=== PATIENT | female | born 1975 | race African-American/Black ===

== ENCOUNTER 2017-02-09 16:05 | Emergency (ER) | payer MEDICAID ==
[~2017-02-09] VITALS: Ht 162.6 cm; Wt 49.9 kg
[~2017-02-09 16:05] MED LIST: SUMA50TA2 PO
[2017-02-09 17:12] VITALS: BP 115/86
[2017-02-09] MEDS ORDERED: SUMAtriptan SUCCINATE 6 MG/0.5 ML VL SC ONE (17:15)
[2017-02-09] MEDS ORDERED: ONDANSETRON ODT 4 MG TAB PO ONE (17:15)
== END 2017-02-09 18:05 | disposition home or self-care (01) ==
LOC: ER 16:13
DX: G43.909 Migraine, unspecified, not intractable, without status migrainosus (principal); F17.210 Nicotine dependence, cigarettes, uncomplicated
CPT/HCPCS: 96372; 99283; J3030; Q0162

== ENCOUNTER 2017-06-24 08:02 | Emergency (ER) | payer MEDICAID ==
[~2017-06-24] VITALS: Ht 162.6 cm; Wt 49.9 kg
[2017-06-24 08:07] VITALS: BP 104/64
[2017-06-24] MEDS ORDERED: diphenhdrAMINE HCL 25 MG CAP PO ONE (10:30)
[2017-06-24] MEDS ORDERED: KETOROLAC TROMETH 60MG/2ML VIAL IM ONE (10:30)
[2017-06-24] MEDS ORDERED: ONDANSETRON ODT 4 MG TAB PO ONE (10:30)
== END 2017-06-24 11:54 | disposition home or self-care (01) ==
LOC: ER 08:02
DX: G43.909 Migraine, unspecified, not intractable, without status migrainosus (principal); Z87.891 Personal history of nicotine dependence
CPT/HCPCS: 96372; 99283; J1885; Q0162

== ENCOUNTER 2017-09-01 14:12 | Emergency (ER) | payer SELFPAY ==
[~2017-09-01] VITALS: Ht 160 cm; Wt 47.6 kg
[2017-09-01 14:43] VITALS: BP 122/84
[2017-09-01] MEDS ORDERED: ONDANSETRON ODT 4 MG TAB PO ONE ×2 (14:58→15:00)
[2017-09-01] MEDS ORDERED: SUMAtriptan SUCCINATE 6 MG/0.5 ML VL SC ONE (15:45)
[2017-09-01] MEDS ORDERED: PROMETHAZINE HCL 25 MG/ML 1ML IM ONE (15:45)
== END 2017-09-01 17:15 | disposition home or self-care (01) ==
LOC: ER 14:12
DX: G43.909 Migraine, unspecified, not intractable, without status migrainosus (principal); F17.210 Nicotine dependence, cigarettes, uncomplicated
CPT/HCPCS: 96372; 99284; J2550; J3030; Q0162

== ENCOUNTER 2018-06-13 09:36 | Emergency (ER) | payer MEDICAID, OTHER ==
[~2018-06-13] VITALS: Ht 162.6 cm; Wt 49.9 kg
[2018-06-13 09:48] VITALS: BP 93/68
[2018-06-13] MEDS ORDERED: ONDANSETRON ODT 4 MG TAB PO ONE (10:30)
[2018-06-13] MEDS ORDERED: SUMAtriptan SUCCINATE 6 MG/0.5 ML VL SC ONE (10:30)
== END 2018-06-13 11:16 | disposition home or self-care (01) ==
LOC: ER 09:36
DX: G43.909 Migraine, unspecified, not intractable, without status migrainosus (principal); Z79.899 Other long term (current) drug therapy
CPT/HCPCS: 96372; 99283; J3030; Q0162

== ENCOUNTER 2018-10-23 10:32 | Emergency (ER) | payer OTHER ==
[~2018-10-23] VITALS: Ht 152.4 cm; Wt 49.0 kg
[2018-10-23 10:54] VITALS: BP 138/72
[2018-10-23] MEDS ORDERED: SUMAtriptan SUCCINATE 6 MG/0.5 ML VL SC ONE (11:00)
[2018-10-23] MEDS ORDERED: ONDANSETRON ODT 4 MG TAB PO ONE (11:00)
== END 2018-10-23 11:56 | disposition home or self-care (01) ==
LOC: ER 10:32
DX: G43.909 Migraine, unspecified, not intractable, without status migrainosus (principal); F17.210 Nicotine dependence, cigarettes, uncomplicated
CPT/HCPCS: 96372; 99283; J3030; Q0162

== ENCOUNTER 2019-05-08 20:40 | Emergency (ER) | payer OTHER ==
[~2019-05-08] VITALS: Ht 160 cm; Wt 48.1 kg
[2019-05-08 22:04] VITALS: BP 101/75
[2019-05-08] MEDS ORDERED: HYDROcodone-ACET 10/325MG TAB PO ONE (22:15)
[2019-05-08] MEDS ORDERED: KETOROLAC TROMETH 60MG/2ML VIAL IM ONE (22:15)
== END 2019-05-08 22:17 | disposition home or self-care (01) ==
LOC: ER 20:44
DX: H66.93 Otitis media, unspecified, bilateral (principal); R05 Cough; R09.81 Nasal congestion
CPT/HCPCS: 96372; 99283; J1885